=== PATIENT | male | born 1940 | race Caucasian/White ===

== ENCOUNTER 2025-01-18 14:33 | Outpatient (CLI) | payer MEDICARE, SELFPAY ==
--- NOTE | ~2025-01-18 | XR_ITS ---
EXAMINATION: XR chest 2V, 01/18/2025 14:42 SALES ORDER ADMINISTRATOR HISTORY: URI; cough chest pain COMPARISON: No comparisons available. Technique: 2 views obtained. Findings: The lungs are clear, no effusion. No pneumothorax. Heart is normal size. Mediastinal and hilar contours are within normal limits. Bony thorax no acute abnormality. Impression: No acute cardiopulmonary abnormality. Reviewed, dictated and finalized at location P. S ORDER ADMINISTRATOR Impression: No acute cardiopulmonary abnormality.
== END 2025-01-18 14:34 | disposition home or self-care (01) ==
LOC: MICIMG 14:39
DX: J06.9 Acute upper respiratory infection, unspecified (principal)
CPT/HCPCS: 71046